=== PATIENT | female | born 1990 | race Hispanic/Latino ===

== ENCOUNTER 2021-02-28 11:24 | Emergency (ER) | payer OTHER ==
[~2021-02-28] VITALS: Ht 160 cm; Wt 53.6 kg
--- NOTE | 2021-02-28 11:54 | REP ---
INDICATION: VAGINAL BLEEDING COMPARISON: None. TECHNIQUE: Transabdominal 1st trimester obstetrical ultrasound with color Doppler evaluation. FINDINGS: Single live early intrauterine is appreciated. Gestational sac with yolk sac and pole identified. Troy-rump length of 8 mm corresponds to 6 weeks 5 days gestational age with estimated date of delivery 10/19/2021. heart rate equals 124 beats per minute. Small subchorionic hemorrhage to the left of the gestational sac measures 11 x 13 x 9 mm. IMPRESSION: Single live early intrauterine at 6 weeks 5 days gestational age. Complete anatomical assessment should be performed and 19-20 weeks. Small subchorionic hemorrhage noted. <Electronically signed by Edmond Faustin > 02/28/21 0270
[2021-02-28 12:02] LABS: BASO % 0.2 % (0.0-1.0); EOS # 0.1 10^3/uL (0.0-0.5); EOS % 1.1 % (0.0-3.0); HEMATOCRIT 33.5 % (36.0-47.0); HEMOGLOBIN 10.4 g/dl (12.0-15.5); LYMPH # 1.7 10^3/uL (1.5-5.0); LYMPH % 18.7 % (24.0-44.0); MEAN CORPUSCULAR HEMOGLOBIN 19.4 pg (27.0-33.0); MEAN CORPUSCULAR VOLUME 62.5 fl (80.0-96.0); MONO # 0.6 10^3/uL (0.0-0.8); MONO % 6.3 % (2.0-8.0); NEUTROPHILS # 6.8 10^3/uL (1.5-8.5); NEUTROPHILS % 73.2 % (36.0-66.0); PLATELET COUNT, AUTOMATED 325 10^3/uL (150-450); RED BLOOD COUNT 5.36 10^6/uL (4.00-5.40); WHITE BLOOD COUNT 9.3 10^3/uL (4.0-10.0)
[2021-02-28 12:02] LABS: APPEARANCE, URINE CLOUDY (CLEAR); BACTERIA, URINE AUTO 1+ (NEGATIVE); BILIRUBIN, URINE AUTO NEGATIVE (NEGATIVE); BLOOD, URINE BLOOD 3+ (NEGATIVE); COLOR, URINE YELLOW (YELLOW); GLUCOSE, URINE (UA) AUTO NEGATIVE (NEGATIVE); KETONE, URINE AUTO NEGATIVE (NEGATIVE); LEUKOCYTE ESTERASE, URINE AUTO TRACE (NEGATIVE); MUCUS, URINE SMALL (NEGATIVE); NITRITE, URINE AUTO NEGATIVE (NEGATIVE); PROTEIN, URINE AUTO 1+ mg/dL (NEGATIVE); RBC, URINE AUTO 3 /HPF (0-3); SPECIFIC GRAVITY URINE AUTO 1.026 (1.002-1.035); SQUAMOUS EPITHELIAL CELL UR AU 18 /HPF (0-6); UROBILINOGEN, URINE AUTO 0.2 mg/dL (0.0-2.0); WBC, URINE AUTO 3 /HPF (0-3)
[2021-02-28] MEDS ORDERED: RHOGAM 300 MCG (1500 IU) INJ (J2790) IM ONE (13:10)
[2021-02-28 14:14] VITALS: BP 109/64
== END 2021-02-28 14:21 | disposition home or self-care (01) ==
LOC: M ED 11:24 → EDBD 11:24 → M ED 14:21
DX: O20.0 Threatened abortion (principal); Z3A.01 Less than 8 weeks gestation of pregnancy
CPT/HCPCS: 76801; 81001; 84702; 85025; 86850; 86900; 86901; 96372; 99283; J2790

== ENCOUNTER → 2021-03-03 | Outpatient (CLI) | payer MEDICAID, OTHER | LOC: M LAB 11:41 | PROVIDERS: ATTEND Nurse Practitioner Family | DX: N93.9 Abnormal uterine and vaginal bleeding, unspecified (principal) ==

== ENCOUNTER → 2021-03-17 | Outpatient (REF) | payer OTHER, SELFPAY ==
[2021-03-17 17:02] LABS: HEMATOCRIT 31.8 % (36.0-47.0); HEMOGLOBIN 9.7 g/dl (12.0-15.5); MEAN CORPUSCULAR HEMOGLOBIN 19.5 pg (27.0-33.0); MEAN CORPUSCULAR HGB CONC 30.5 g/dl (32.0-36.5); MEAN CORPUSCULAR VOLUME 63.9 fl (80.0-96.0); PLATELET COUNT, AUTOMATED 327 10^3/uL (150-450); RED BLOOD COUNT 4.98 10^6/uL (4.00-5.40); WHITE BLOOD COUNT 10.4 10^3/uL (4.0-10.0)
[2021-03-17 18:16] LABS: HIV 1&2 SCREEN CENTAUR NEGATIVE (NEGATIVE)
[2021-03-17 19:46] LABS: CHLAMYDIA DNA AMPLIFICATION NEGATIVE (NEGATIVE); GC DNA AMPLIFICATION NEGATIVE (NEGATIVE)
== END ==
LOC: M PLALAB 15:23
PROVIDERS: ATTEND Advanced Practice Midwife
DX: O34.40 Maternal care for other abnormalities of cervix, unspecified trimester (principal); Z12.4 Encounter for screening for malignant neoplasm of cervix; Z3A.00 Weeks of gestation of pregnancy not specified

== ENCOUNTER → 2021-03-22 | Outpatient (REF) | payer OTHER, SELFPAY ==
[2021-03-22 16:08] LABS: PERCENT SATURATION 40.4 % (13.2-45.0)
[2021-03-25 18:09] LABS: HEMOGLOBIN A 94.7 % (96.4-98.8); HEMOGLOBIN F (FETAL) 0.3 % (0.0-2.0)
== END ==
LOC: M PLALAB 13:18
PROVIDERS: ATTEND Advanced Practice Midwife
DX: O99.011 Anemia complicating pregnancy, first trimester (principal)

== ENCOUNTER → 2021-04-14 | Outpatient (CLI) | payer OTHER, SELFPAY | LOC: M WHC 10:07 | PROVIDERS: ATTEND Obstetrics & Gynecology | DX: Z36.89 Encounter for other specified antenatal screening (principal); Z3A.13 13 weeks gestation of pregnancy ==

== ENCOUNTER → 2021-05-13 | Outpatient (CLI) | payer OTHER | LOC: M PLALAB 10:54 | PROVIDERS: ATTEND Advanced Practice Midwife | DX: Z34.82 Encounter for supervision of other normal pregnancy, second trimester (principal); Z36.89 Encounter for other specified antenatal screening ==

== ENCOUNTER → 2021-06-11 | Outpatient (CLI) | payer OTHER, SELFPAY ==
--- NOTE | 2021-06-11 09:36 | REP ---
INDICATION: ANATOMY. COMPARISON: First trimester ultrasound, 02/28/2021. TECHNIQUE: 2D and pulsed Doppler ultrasound evaluation of the gravid uterus was performed in multiple projections. FINDINGS: There is a single living intrauterine of 21 weeks 6 days, mean gestational age. The estimated date of delivery is 10/16/2021. The heart rate is 144 beats per minute. The amniotic fluid volume is normal. The presentation is breech. The placenta is anterior grade 0. There is no placenta previa. There is a three-vessel umbilical cord. BPD: 5.3 cm consistent with 22 weeks 0 days gestational age. HC, 19.3 cm consistent with 21 weeks 4 days gestational age. AC, 17.4 cm consistent with 22 weeks 2 days gestational age. FL, 3.5 cm consistent with 21 weeks 1 day gestational age. The HC/AC ratio is 1.11 in the FL/AC ratio is 0.20, both within normal limits. The estimated weight is 451 g. Growth percentile is 66%. anatomic structures appear normal as follows: Cranium, CSP, falx cerebri, cerebral ventricles, choroid plexus, cerebellum, cisterna magna, nuchal fold, orbits, nose and lips, lungs, cardiac rate and rhythm, stomach, abdominal wall, kidneys, bladder, spine, upper extremities, lower extremities and three-vessel cord. The following anatomic structures were suboptimally visualized: Facial profile, four-chamber heart, LVOT and RVOT. IMPRESSION: 1. Single living intrauterine of 21 weeks 6 days gestational age. The estimated date of delivery is 10/16/2021. 2. There are no anomalies detected. A few anatomic structures were suboptimally visualized as described. 3. There has been appropriate progression since the prior exam. <Electronically signed by Wilson England > 06/11/21 0901
== END ==
LOC: M WHC 07:59
PROVIDERS: ATTEND Obstetrics & Gynecology
DX: Z36.89 Encounter for other specified antenatal screening (principal); Z3A.21 21 weeks gestation of pregnancy

== ENCOUNTER → 2021-07-20 | Outpatient (CLI) | payer OTHER, SELFPAY ==
--- NOTE | 2021-07-21 06:06 | REP ---
INDICATION: F/U ANATOMY COMPARISON: 06/11/2021 TECHNIQUE: Transabdominal obstetrical ultrasound with color Doppler evaluation. FINDINGS: Examination demonstrates a single live intrauterine in cephalic presentation. motion is identified by technologist. Placenta is noted anterior and grade 1 without evidence for placenta previa or abruption. Amniotic fluid volume is normal. Selected gestational age: 27 weeks 0 days with JASMIN 10/19/2021. Gestational age by current measurements 27 weeks 4 days with JASMIN 10/15/2021. FHR equals 146 beats per minute. Estimated weight 1102 grams (65thpercentile). Anatomical assessment demonstrates normal structures including cranium, choroid plexus, cavum, cerebellum/posterior fossa, facial features, lungs, ventricular outflow tracts, diaphragm, stomach, cord insertion/three-vessel cord, kidneys/bladder, spine, and extremities. IMPRESSION: Single live intrauterine in cephalic presentation demonstrating appropriate estimated weight. Continued limited evaluation of the heart due to positioning. Remainder of the anatomical assessment is complete and normal. <Electronically signed by Edmond Faustin > 07/21/21 0602
== END ==
LOC: M WHC 12:09
PROVIDERS: ATTEND Obstetrics & Gynecology
DX: O99.012 Anemia complicating pregnancy, second trimester (principal); D64.9 Anemia, unspecified; Z3A.27 27 weeks gestation of pregnancy

== ENCOUNTER → 2021-08-06 | Outpatient (CLI) | payer MEDICAID, SELFPAY ==
[~2021-08-06] MED LIST: PRENTAB9 PO; ZOFR4TAB16 PO
[2021-08-06 17:12] LABS: HEMATOCRIT 32.4 % (36.0-47.0); HEMOGLOBIN 10.1 g/dl (12.0-15.5); MEAN CORPUSCULAR HEMOGLOBIN 20.3 pg (27.0-33.0); MEAN CORPUSCULAR HGB CONC 31.2 g/dl (32.0-36.5); MEAN CORPUSCULAR VOLUME 65.2 fl (80.0-96.0); PLATELET COUNT, AUTOMATED 276 10^3/uL (150-450); RED BLOOD COUNT 4.97 10^6/uL (4.00-5.40); WHITE BLOOD COUNT 10.6 10^3/uL (4.0-10.0)
== END ==
LOC: M LAB 15:26
PROVIDERS: ATTEND Obstetrics & Gynecology
DX: O99.342 Other mental disorders complicating pregnancy, second trimester (principal); Z3A.00 Weeks of gestation of pregnancy not specified
CPT/HCPCS: 36415; 82950; 85027; 86850; 86900; 86901; J2790

== ENCOUNTER → 2021-08-06 | Outpatient (CLI) | payer OTHER, SELFPAY | LOC: M WHC 14:26 | PROVIDERS: ATTEND Obstetrics & Gynecology | DX: O99.012 Anemia complicating pregnancy, second trimester (principal); Z53.9 Procedure and treatment not carried out, unspecified reason ==

== ENCOUNTER → 2021-09-20 | Outpatient (REF) | payer MEDICAID, OTHER, SELFPAY | LOC: M SFHCWAGY 17:01 | PROVIDERS: ATTEND Specialist | DX: Z34.03 Encounter for supervision of normal first pregnancy, third trimester (principal) ==

== ENCOUNTER 2021-10-19 13:03 | Inpatient (IN) | payer MEDICAID, OTHER ==
[2021-10-19] VITALS (23 sets, daily range): BP systolic 104–168; BP diastolic 58–97
[~2021-10-19] VITALS: Ht 160 cm; Wt 72.9 kg
[2021-10-19] MEDS ORDERED: ZOFR4TAB16 PO (13:38)
[2021-10-19] MEDS ORDERED: PRENTAB9 PO ×2 (13:38)
[2021-10-19] MEDS ORDERED: HOME MED LIST COMPLETE! XX SCH (13:40)
[2021-10-19] MEDS ORDERED: OXYTOCIN DRIP 30 UNITS in IV 1 EA IV PRN (14:25)
[2021-10-19] MEDS ORDERED: PROMETHAZINE INJ 25 MG/ML VIAL (J2550) IV PRN (14:25)
[2021-10-19] MEDS ORDERED: BUTORPHANOL 2 MG/ML INJ (J0595) IV ONE (14:25)
[2021-10-19 14:54] LABS: HEMOGLOBIN 9.8 g/dl (12.0-15.5); MEAN CORPUSCULAR HEMOGLOBIN 19.3 pg (27.0-33.0); MEAN CORPUSCULAR HGB CONC 30.6 g/dl (32.0-36.5); MEAN CORPUSCULAR VOLUME 63.1 fl (80.0-96.0); PLATELET COUNT, AUTOMATED 202 10^3/uL (150-450); RED BLOOD COUNT 5.07 10^6/uL (4.00-5.40); WHITE BLOOD COUNT 13.9 10^3/uL (4.0-10.0)
[2021-10-19] MEDS ORDERED: FENTANYL 2MCG/ML ROPIVACAINE 0.2% IN 0.9% NACL 100ML IVBAG As Ordered ONE (17:24)
[2021-10-19] MEDS ORDERED: FENTANYL/ROPIVACAINE/NACL BAG 100 ML EPIDURAL SCH (17:35)
[2021-10-19] MEDS ORDERED: REFRIGERATOR IV KEYS XX PRN ×2 (17:35→18:15)
[2021-10-19] MEDS ORDERED: EPIDURAL/PCA KEYS XX PRN ×2 (17:35→18:15)
[2021-10-19] MEDS ORDERED: LR 1,000 ML IV SCH ×2 (17:35→22:50)
[2021-10-19] MEDS ORDERED: LACTATED RINGER'S 1000 ML IV ONE (17:35)
[2021-10-19] MEDS ORDERED: LACTATED RINGER'S 1000 ML IV PRN (18:15)
[2021-10-19] MEDS ORDERED: NALOXONE INJ 0.4MG/1ML VIAL (J2310 PER 1MG) IV PRN (18:15)
[2021-10-19] MEDS ORDERED: EPIDURAL COMMENT XX SCH (18:15)
[2021-10-19] MEDS ORDERED: diphenhydrAMINE 50MG/ML VIAL (J1200) IV PRN (18:15)
[2021-10-19] MEDS ORDERED: ePHEDrine SULFATE 25 MG/5 ML(5MG/ML) SYRINGE IV PRN (18:15)
[2021-10-19] MEDS ORDERED: ONDANSETRON 4MG/2ML VIAL IV PRN (18:15)
[2021-10-19] MEDS: FENTANYL/ROPIVACAINE/NACL BAG 100 ML EPIDURAL SCH (18:29)
[2021-10-19] MEDS ORDERED: OXYTOCIN DRIP 30 UNITS in IV 1 EA IV SCH (22:50)
[2021-10-20] VITALS (15 sets, daily range): BP systolic 118–169; BP diastolic 62–101
[2021-10-20] MEDS: FENTANYL/ROPIVACAINE/NACL BAG 100 ML EPIDURAL SCH (01:29)
[2021-10-20] MEDS ORDERED: METHYLERGONOVINE MALEATE 0.2 MG TAB PO PRN (04:00)
[2021-10-20] MEDS ORDERED: ANUSOL HC CREAM 30GM TOP PRN (04:00)
[2021-10-20] MEDS ORDERED: MEASLES,MUMPS,RUBELLA VACCINE INJ (MMR-II) (90707) SC SCH (04:00)
[2021-10-20] MEDS ORDERED: MOM 30ML SUSPENSION UDC PO PRN (04:00)
[2021-10-20] MEDS ORDERED: OXYTOCIN DRIP 30 UNITS in IV 1 EA IV SCH (04:00)
[2021-10-20] MEDS ORDERED: ACETAMINOPHEN TAB 650MG DOSE (2X325MG) PO PRN (04:00)
[2021-10-20] MEDS ORDERED: DIBUCAINE 1% OINTMENT 30GM TOP PRN (04:00)
[2021-10-20] MEDS ORDERED: IBUPROFEN 600MG TAB PO PRN (04:00)
[2021-10-20] MEDS ORDERED: RHOGAM 300 MCG (1500 IU) INJ (J2790) IM SCH (04:00)
[2021-10-20] MEDS ORDERED: ONDANSETRON 4MG/2ML VIAL IV PRN (04:00)
[2021-10-20] MEDS: IBUPROFEN 800 MG TAB PO PRN (06:53)
[2021-10-20] MEDS: PRENATAL VITAMINS CHEWABLE TABLET PO SCH (08:28)
[2021-10-20] MEDS: DOCUSATE SODIUM 100MG CAPSULE PO PRN (20:58)
[2021-10-20] MEDS: ACETAMINOPHEN 500 MG TAB PO PRN (20:58)
[2021-10-21] MEDS: IBUPROFEN 800 MG TAB PO PRN ×3 (00:22→21:15)
[2021-10-21] MEDS ORDERED: DIBUCAINE 1% OINTMENT 30GM As Ordered ONE (02:46)
[2021-10-21 06:00] VITALS: BP 112/75
[2021-10-21] MEDS: ACETAMINOPHEN 500 MG TAB PO PRN ×2 (06:24→18:24)
[2021-10-21] MEDS: PRENATAL VITAMINS CHEWABLE TABLET PO SCH (10:05)
[2021-10-21 17:58] VITALS: BP 115/73
[2021-10-21] MEDS: DOCUSATE SODIUM 100MG CAPSULE PO PRN (21:15)
[2021-10-22 06:00] VITALS: BP 120/70
[2021-10-22] MEDS: IBUPROFEN 800 MG TAB PO PRN (06:44)
[2021-10-22] MEDS: ACETAMINOPHEN 500 MG TAB PO PRN (08:25)
[2021-10-22] MEDS: PRENATAL VITAMINS CHEWABLE TABLET PO SCH (08:25)
== END 2021-10-22 12:30 | disposition home or self-care (01) | DRG 560 ==
LOC: M LDO 13:03 → M LDI 14:21 → M OBS 10-20 05:37
PROVIDERS: ADMIT Obstetrics & Gynecology; ATTEND Obstetrics & Gynecology
PROC: 10E0XZZ Delivery of Products of Conception, External Approach (ICD-10-PCS; principal; 2021-10-20)
PROC: 0HQ9XZZ Repair Perineum Skin, External Approach (ICD-10-PCS; 2021-10-20)
DX: O48.0 Post-term pregnancy (principal); Z3A.40 40 weeks gestation of pregnancy; Z37.0 Single live birth; O70.0 First degree perineal laceration during delivery